=== PATIENT | female | born 1960 | race Caucasian/White ===

== ENCOUNTER 2016-06-10 12:00 | Day surgery (SDC) | payer MEDICARE, MEDICAID ==
[~2016-06-10] VITALS: Ht 172.7 cm; Wt 63.5 kg
[~2016-06-10 12:00] MED LIST: 0.9% Sodium Chloride 1,000 ML IV SCH; ATOR20TA PO; BACL10TA PO; LEVO750T9 PO; LISI10TA PO; LORA0.5T PO; OXYC5TAB72 PO; SENN-133 PO; SERT25TA6 PO; SERT50TA9 PO; Sodium Chloride LOK Flush 10 mL Syringe IV PRN; fentaNYL-PF 50 mCg/mL 2 mL Inj IVPUSH PRN
[2016-06-10 13:25] VITALS: BP 158/82; PULSE 78; RESP 14; O2SAT 97
[2016-06-10 15:37] VITALS: BP 141/77; PULSE 72; RESP 15; O2SAT 97
[2016-06-10 15:47] VITALS: BP 128/88; PULSE 68; RESP 17; O2SAT 96
[2016-06-10 15:57] VITALS: BP 130/85; PULSE 70; RESP 17; O2SAT 96
--- NOTE | 2016-06-10 16:47 | ENDO ---
[address] [address] ENDOSCOPY PROCEDURE PATIENT: LORAINE HANKS : 1960 MR#: [id number] ADMIT: 06/10/2016 JOB ID: [id number] DATE: 06/10/2016 PRIMARY PROVIDER: Ki Park DO (R) PROCEDURE: Colonoscopy with hot snare polypectomy. INDICATIONS: A 55-year-old female with a history of both adenomatous and hyperplastic colon polyps returning for surveillance. EQUIPMENT: PCF H 190 L. SEDATION: 1. 8 mg Versed. 2. 175 mcg fentanyl. COMPLICATIONS: None identified. BOWEL PREPARATION: Fair. PROCEDURE INFORMATION: After the risks and benefits were explained, written and verbal informed consent was obtained. The patient was brought into the endoscopy suite and placed into the left lateral decubitus position. Sedation was achieved using the above-stated medications with the addition of oxygen via nasal cannula. A digital rectal examination was accomplished. Apart from some mild internal hemorrhoids and external, nonthrombosed, nonbleeding hemorrhoids, no other pathology was appreciated. The scope was introduced into the rectum and advanced to the cecum as identified by the appendiceal orifice and ileocecal valve. The scope was slowly withdrawn to carefully examine the mucosa for any defects or lesions. Multiple direct views were made through the dentate line for exclusion of pathology. The colon was decompressed. The scope removed from the patient who tolerated the procedure well. FINDINGS: The patient had rather extensive diverticulosis through the left colon even up into the transverse region. The patient had a long tortuous course. Navigation was challenging. There were two polyps removed from the mid colon using hot snare. The largest was perhaps 6-7 mm of the two. There was then a diminutive 4-5 mm polyp in the rectosigmoid region that was removed with hot snare. There were several classic hyperplastic-appearing polyps in the rectosigmoid that we did not address. Within the limitations of bowel prep, no other significant pathology present today. ENDOSCOPIC DIAGNOSES: 1. Colon polyps. 2. Diverticulosis. 3. Hemorrhoids. RECOMMENDATIONS: 1. Await histopathology. 2. Repeat colonoscopy in three years.
--- NOTE | 2016-06-12 15:48 | PATH ---
SURGICAL PATHOLOGY Attending Physician:Raymond Barillas CASE STATUS: Signed Out PATIENT NAME: LORAINE HANKS PID: [id number] : 1960 DATE COLLECTED:06/10/2016 00:00 SPECIMEN: 1: Colon, Biopsy 2: Colon, Biopsy CLINICAL HISTORY: 1). COLON POLYPS 2). RECTAL SIGMOID POLYP FINAL DIAGNOSIS: 1.COLON POLYPS: HYPERPLASTIC POLYP INVOLVING BOTH BIOPSY FRAGMENTS. 2.RECTOSIGMOID POLYP: CHANGES CONSISTENT WITH HYPERPLASTIC POLYP. ICD10 CODEK62.1 GROSS DESCRIPTION: The specimen is received in two formalin filled containers labeled with the patient's name. 1). The specimen is sublabeled "colon polyps" and consists of 2 portions of tissue which aggregate to 0.5 x 0.5 x 0.4 CM. The specimen is entirely submitted in cassette 1A. 2). The specimen is sublabeled "rectal sigmoid polyp" and consists of a 0.3 x 0.3 x 0.2 CM portion of tissue which is entirely submitted in cassette 2A. 06/11/2016 [facility] MICRO DESCRIPTION: See diagnosis. ICD-9 CODES: CPT CODES: 1: 08257 2: 33498 Electronically Signed Out J Luis Epps MD [facility] Pathology [facility] [address] [place] [address] Technical component performed at [facility], [address] [place] [address] [address], [address]
== END 2016-06-10 23:59 | disposition home or self-care (01) ==
LOC: END 12:00
PROVIDERS: ATTEND Internal Medicine Gastroenterology
DX: Z12.11 Encounter for screening for malignant neoplasm of colon (principal); Z86.010 Personal history of colon polyps; K63.5 Polyp of colon; K62.1 Rectal polyp; K64.9 Unspecified hemorrhoids; K57.30 Diverticulosis of large intestine without perforation or abscess without bleeding; I10 Essential (primary) hypertension; F41.9 Anxiety disorder, unspecified; E78.5 Hyperlipidemia, unspecified; F17.210 Nicotine dependence, cigarettes, uncomplicated
CPT/HCPCS: 45385; 99153; G0500; J7030